=== PATIENT | female | born 1940 | race Caucasian/White ===

== ENCOUNTER → 2016-11-07 | Outpatient (CLI) | payer OTHER ==
[~2016-11-07] MED LIST: ANT12.5 PO; BELLADONNA ALK1 TAB PO; BEN20 PO; BUSPIRONE5 M1 PO; DOCUSATE PO; ESCITALOPRAM10 M1 PO; GOOD SENSE ASPI81 M3 PO; HYD25; HYDROCHLOROTHIA PO; MEG40 PO; MELOXICAM7.5 MG PO; METOPROLOL SUCC25 M1 PO; OMEPRAZOLE DR20 M1; OMEPRAZOLE40 MG PO; OXYBUTYNIN5 MG PO; PREMARIN0.625 M PO; ZOC20 PO; ZOF4 PO; [UNRECOGNIZED DRUG - OTHER] PO
== END | disposition home or self-care (01) ==
LOC: RD 10:25
DX: M54.5 Low back pain (principal)

== ENCOUNTER 2016-11-19 07:07 | Emergency (ER) | payer OTHER ==
[~2016-11-19] VITALS: Ht 165.1 cm; Wt 40.5 kg
[2016-11-19 08:48] LABS: BASOPHIL % 0.7 % (0-2); PLATELET COUNT 216 x10^3mcL (130-400); RED CELL DISTRIBUTION WIDTH 14.1 % (11.5-14.5)
[2016-11-19 09:05] LABS: CALCIUM 9.2 mg/dL (8.5-10.1); CARBON DIOXIDE 30.4 mmol/L (21-32); CHLORIDE SERUM 107 mmol/L (98-107); CREATININE SERUM 0.7 mg/dL (0.6-1.0); GLUCOSE SERUM 100 mg/dL (74-106); POTASSIUM SERUM 3.4 mmol/L (3.5-5.1); SODIUM SERUM 146 mmol/L (136-145)
[2016-11-19 09:10] LABS: ALBUMIN 3.6 g/dL (3.4-5.0); ALKALINE PHOSPHATASE 53 U/L (46-116); ALT/SGPT 17 U/L (14-59); AST/SGOT 17 U/L (15-37); BILIRUBIN TOTAL 0.3 mg/dL (0.20-1.00); LIPASE 192 IU/L (73-393); TOTAL PROTEIN, SERUM 7.3 g/dL (6.4-8.2)
[2016-11-19 09:36] LABS: microscopic required? YES; urine erythrocyte 3+ (NEGATIVE)
[2016-11-19 12:13] VITALS: BP 141/82
== END 2016-11-19 12:13 | disposition home or self-care (01) ==
LOC: ED 07:07
PROVIDERS: Emergency Medicine
DX: E86.0 Dehydration (principal); N39.0 Urinary tract infection, site not specified; M79.1 Myalgia; I10 Essential (primary) hypertension; F99 Mental disorder, not otherwise specified; Z88.2 Allergy status to sulfonamides; Z88.5 Allergy status to narcotic agent; Z79.899 Other long term (current) drug therapy
CPT/HCPCS: J1885; J2405; J7030